=== PATIENT | female | born 1990 | race Caucasian/White ===

== ENCOUNTER 2019-03-21 17:10 | Outpatient (CLI) | payer BC, SELFPAY ==
[2019-03-21 17:34] VITALS: BMI 37.8
[2019-03-21 17:57] LABS: Hematocrit 36.8 % (37-47); Hemoglobin 12.3 g/dL (12.0-15.0); Mean Corp Hgb Conc 33.4 g/dL (32-36); Mean Corpuscular Hgb 29.6 pg (27.0-32.0); Mean Corpuscular Volume 88.5 fL (81-99); Mean Platelet Vol. 10.7 fl (6.2-12.0); Platelet Count 274 K/mm3 (150-450); RBC Distribution Width CV 13.7 % (11.6-14.6); RBC Distribution Width SD 44.1 fl (35.1-43.9); Red Blood Count 4.16 M/mm3 (4.2-5.4)
[2019-03-21 18:03] LABS: International Normalized Ratio 0.9; Prothrombin Time (Protime)PT. 11.9 SECONDS (11.7-14.9)
[2019-03-21 18:04] LABS: Partial Thromboplast Time 26.2 Seconds (24.1-36.2)
[2019-03-21 18:07] LABS: AST(SGOT) 12 U/L (15-37); Alanine Aminotransfer ALT/SGPT 12 U/L (13-56); Creatinine, Serum 0.65 mg/dL (0.55-1.02); EST Glomerular Filtration Rate 113 mL/min (>60); Est Glom Filt Rate - Afr Amer 137 mL/min (>60); Estimated Creatinine Clearance 114.91 ml/min; Uric Acid 5.9 mg/dL (2.6-6.0)
[2019-03-21 18:13] LABS: Creatinine, Urine (random) < 13.00 mg/dL (NO RANGE EST.); Protein, Urine (Random) < 6.0 mg/dL (<11.9)
--- NOTE | 2019-03-21 20:28 | OB.TRI.NOTE ---
History of Present Illness Date of Service: 03/21/19 Was patient seen by the physician?: Yes Reason For Visit: R/O PIH Date of Service: 03/21/19 Final KAITLIN: 04/30/19 Gestational age: 34 Weeks and 2 Days History of Present Illness: 28yo @ 34.2 wks c/o swelling and BP 140/90 at home. pt denies headache, visual changes, RUQ or epigastric pain. pt reports good FM, No vb or LOF. Allergies No Known Allergies Allergy (Verified 03/21/19 17:35) Laboratory Studies: Laboratory Tests 03/21/19 03/21/19 03/21/19 Range/Units 17:45 17:45 17:45 WBC (4.4-11.0) K/mm3 RBC (4.2-5.4) M/mm3 Hgb (12.0-15.0) g/dL Hct (37-47) % MCV (81-99) fL MCH (27.0-32.0) pg MCHC (32-36) g/dL RDW Std Deviation (35.1-43.9) fl RDW Coeff of Bulmaro (11.6-14.6) % Plt Count (150-450) K/mm3 MPV (6.2-12.0) fl PT 11.9 (11.7-14.9) SECONDS INR 0.9 APTT 26.2 (24.1-36.2) Seconds Creatinine 0.65 (0.55-1.02) mg/dL Estim Creat Clear Calc 114.91 ml/min Est GFR (MDRD) Af Amer 137 (>60) mL/min Est GFR (MDRD) Non-Af 113 (>60) mL/min Uric Acid 5.9 (2.6-6.0) mg/dL AST 12 L (15-37) U/L ALT 12 L (13-56) U/L U Random Total Protein < 6.0 (<11.9) mg/dL Urine Creatinine < 13.00 (NO RANGE EST.) mg/dL Protein/Creatinin Ratio TNP 03/21/19 Range/Units 17:45 WBC 9.0 (4.4-11.0) K/mm3 RBC 4.16 L (4.2-5.4) M/mm3 Hgb 12.3 (12.0-15.0) g/dL Hct 36.8 L (37-47) % MCV 88.5 (81-99) fL MCH 29.6 (27.0-32.0) pg MCHC 33.4 (32-36) g/dL RDW Std Deviation 44.1 H (35.1-43.9) fl RDW Coeff of Bulmaro 13.7 (11.6-14.6) % Plt Count 274 (150-450) K/mm3 MPV 10.7 (6.2-12.0) fl PT (11.7-14.9) SECONDS INR APTT (24.1-36.2) Seconds Creatinine (0.55-1.02) mg/dL Estim Creat Clear Calc ml/min Est GFR (MDRD) Af Amer (>60) mL/min Est GFR (MDRD) Non-Af (>60) mL/min Uric Acid (2.6-6.0) mg/dL AST (15-37) U/L ALT (13-56) U/L U Random Total Protein (<11.9) mg/dL Urine Creatinine (NO RANGE EST.) mg/dL Protein/Creatinin Ratio NST - FHR Rate Baby A Baseline: 125 Variability:: Moderate Accelerations:: 15 x 15 Decelerations:: None NST Reactive:: Yes FHR Category:: Category I Uterine Activity:: occasional Impression/Plan 28yo @ 34.2 wks, well being established, Not preeclamptic 1) Labs reviewed- pre e labs wnl 2) S/sx of PRE E reviewed 3) VS reviewed- BPs wnl 4) Dc home- has office visit 03/23/19
== END 2019-03-21 18:25 | disposition home or self-care (01) ==
LOC: WPOUT 17:17 → WP 17:18
PROVIDERS: Visit Provider Obstetrics & Gynecology
DX: O26.893 Other specified pregnancy related conditions, third trimester (principal); R03.0 Elevated blood-pressure reading, without diagnosis of hypertension; Z3A.34 34 weeks gestation of pregnancy
CPT/HCPCS: 36415; 59025; 59050; 82565; 82570; 84156; 84450; 84460; 84550; 85027; 85610; 85730; 99218; G0378

== ENCOUNTER 2019-03-23 10:20 | Outpatient (CLI) | payer BC, SELFPAY ==
[2019-03-23 10:28] VITALS: BMI 37.1
[2019-03-23 11:06] LABS: Protein, Urine (Random) < 6.0 mg/dL (<11.9)
[2019-03-23 11:13] LABS: Hematocrit 38.1 % (37-47); Hemoglobin 12.9 g/dL (12.0-15.0); Mean Corp Hgb Conc 33.9 g/dL (32-36); Mean Corpuscular Hgb 30.4 pg (27.0-32.0); Mean Corpuscular Volume 89.9 fL (81-99); Mean Platelet Vol. 10.7 fl (6.2-12.0); Platelet Count 281 K/mm3 (150-450); RBC Distribution Width CV 13.6 % (11.6-14.6); RBC Distribution Width SD 43.8 fl (35.1-43.9); Red Blood Count 4.24 M/mm3 (4.2-5.4); White Blood Count 9.8 K/mm3 (4.4-11.0)
[2019-03-23 11:21] LABS: International Normalized Ratio 0.9
[2019-03-23 11:22] LABS: Partial Thromboplast Time 26.3 Seconds (24.1-36.2)
[2019-03-23 11:25] LABS: AST(SGOT) 10 U/L (15-37); Alanine Aminotransfer ALT/SGPT 12 U/L (13-56); Creatinine, Serum 0.64 mg/dL (0.55-1.02); EST Glomerular Filtration Rate 117 mL/min (>60); Est Glom Filt Rate - Afr Amer 141 mL/min (>60); Estimated Creatinine Clearance 116.71 ml/min; Uric Acid 5.7 mg/dL (2.6-6.0)
[2019-03-23] MEDS: Betamethasone/Betamethasone 30 MG/5 ML Vial 12 MG IM (12:48)
--- NOTE | 2019-03-31 04:25 | OB.TRI.PN ---
Progress Notes Date of Service: 03/23/19 Progress Note: 34w4d who presented with elevated BP in office and [facility] and labs. Asymptomatic, no headaches, visual changes, or RUQ pain. O: BP elevated in mild range, one severe range. FHT: 130, moderate variability, accels TOCO: None A: Gestational Hypertension P: 1) Labs normal, urine P/C ratio normal 2) BP with one severe range. To return tomorrow for BP check in office and reviewed preeclampsia precautions. 3) Celestone dose today and repeat in 24 hrs. 4) notified of patient status and ok to D/C home at this time. Laboratory Studies: Laboratory Tests 03/23/19 03/23/19 03/23/19 Range/Units 11:00 11:00 11:00 WBC 9.8 (4.4-11.0) K/mm3 RBC 4.24 (4.2-5.4) M/mm3 Hgb 12.9 (12.0-15.0) g/dL Hct 38.1 (37-47) % MCV 89.9 (81-99) fL MCH 30.4 (27.0-32.0) pg MCHC 33.9 (32-36) g/dL RDW Std Deviation 43.8 (35.1-43.9) fl RDW Coeff of Bulmaro 13.6 (11.6-14.6) % Plt Count 281 (150-450) K/mm3 MPV 10.7 (6.2-12.0) fl PT 12.0 (11.7-14.9) SECONDS INR 0.9 APTT 26.3 (24.1-36.2) Seconds Creatinine 0.64 (0.55-1.02) mg/dL Estim Creat Clear Calc 116.71 ml/min Est GFR (MDRD) Af Amer 141 (>60) mL/min Est GFR (MDRD) Non-Af 117 (>60) mL/min Uric Acid 5.7 (2.6-6.0) mg/dL AST 10 L (15-37) U/L ALT 12 L (13-56) U/L U Random Total Protein (<11.9) mg/dL Urine Creatinine (NO RANGE EST.) mg/dL Protein/Creatinin Ratio 03/23/19 Range/Units 10:30 WBC (4.4-11.0) K/mm3 RBC (4.2-5.4) M/mm3 Hgb (12.0-15.0) g/dL Hct (37-47) % MCV (81-99) fL MCH (27.0-32.0) pg MCHC (32-36) g/dL RDW Std Deviation (35.1-43.9) fl RDW Coeff of Bulmaro (11.6-14.6) % Plt Count (150-450) K/mm3 MPV (6.2-12.0) fl PT (11.7-14.9) SECONDS INR APTT (24.1-36.2) Seconds Creatinine (0.55-1.02) mg/dL Estim Creat Clear Calc ml/min Est GFR (MDRD) Af Amer (>60) mL/min Est GFR (MDRD) Non-Af (>60) mL/min Uric Acid (2.6-6.0) mg/dL AST (15-37) U/L ALT (13-56) U/L U Random Total Protein < 6.0 (<11.9) mg/dL Urine Creatinine 15.60 (NO RANGE EST.) mg/dL Protein/Creatinin Ratio TNP
== END 2019-03-23 12:50 | disposition home or self-care (01) ==
LOC: WPOUT 10:25 → OBT 10:26
PROVIDERS: Referring Provider Advanced Practice Midwife; Visit Provider Advanced Practice Midwife
DX: O13.3 Gestational [pregnancy-induced] hypertension without significant proteinuria, third trimester (principal); Z3A.34 34 weeks gestation of pregnancy; O60.03 Preterm labor without delivery, third trimester
CPT/HCPCS: 36415; 59025; 59050; 82565; 82570; 84156; 84450; 84460; 84550; 85027; 85610; 85730; 96372; 99218; G0378; J0702

== ENCOUNTER 2019-03-24 11:10 | Outpatient (CLI) | payer BC, SELFPAY ==
[2019-03-23 10:28] VITALS: BMI 37.1
[2019-03-24 11:33] VITALS: BMI 37.3
[2019-03-24] MEDS: Betamethasone/Betamethasone 30 MG/5 ML Vial 12 MG IM (11:40)
--- NOTE | 2019-03-24 17:49 | OB.TRI.NOTE ---
History of Present Illness Date of Service: 03/24/19 Was patient seen by the physician?: No Reason For Visit: CELESTONE Date of Service: 03/24/19 Allergies No Known Allergies Allergy (Verified 03/24/19 11:33) Impression/Plan 29-year-old 2 para 034+ gestational weeks with gestational hypertension. Presents for second dose of betamethasone. Betamethasone given. Follow-up in the office as scheduled or as needed.
== END 2019-03-24 12:00 | disposition home or self-care (01) ==
LOC: WPOUT 11:19 → OBT 11:20
PROVIDERS: Referring Provider Obstetrics & Gynecology; Visit Provider Obstetrics & Gynecology
DX: O13.3 Gestational [pregnancy-induced] hypertension without significant proteinuria, third trimester (principal); Z3A.34 34 weeks gestation of pregnancy
CPT/HCPCS: 96372; 99218; G0378; J0702

== ENCOUNTER 2019-03-25 13:20 | Outpatient (CLI) | payer BC, SELFPAY ==
[2019-03-24 11:33] VITALS: BMI 37.3
[2019-03-25 13:43] VITALS: BMI 37.8
[2019-03-25 14:35] LABS: Hemoglobin 11.2 g/dL (12.0-15.0); Mean Corp Hgb Conc 32.9 g/dL (32-36); Mean Corpuscular Hgb 29.9 pg (27.0-32.0); Mean Corpuscular Volume 90.7 fL (81-99); Mean Platelet Vol. 10.8 fl (6.2-12.0); Platelet Count 300 K/mm3 (150-450); RBC Distribution Width CV 14.1 % (11.6-14.6); RBC Distribution Width SD 45.8 fl (35.1-43.9); Red Blood Count 3.75 M/mm3 (4.2-5.4); White Blood Count 13.5 K/mm3 (4.4-11.0)
[2019-03-25 14:44] LABS: Protein, Urine (Random) 67.4 mg/dL (<11.9); Protein:Creat Ratio 411 mg/g CRE (0-200)
[2019-03-25 14:44] LABS: International Normalized Ratio 0.9; Prothrombin Time (Protime)PT. 12.3 SECONDS (11.7-14.9)
[2019-03-25 14:45] LABS: Partial Thromboplast Time 23.3 Seconds (24.1-36.2)
[2019-03-25 14:47] LABS: AST(SGOT) 19 U/L (15-37); Alanine Aminotransfer ALT/SGPT 19 U/L (13-56); Creatinine, Serum 0.78 mg/dL (0.55-1.02); EST Glomerular Filtration Rate 93 mL/min (>60); Est Glom Filt Rate - Afr Amer 112 mL/min (>60); Uric Acid 6.3 mg/dL (2.6-6.0)
[2019-03-26 14:12] LABS: 24HR. Urine Creatinine 1.56 g/24 HR (0.70-1.90)
--- NOTE | 2019-04-01 17:44 | OB.TRI.NOTE ---
- Problem List (1) Gestational hypertension Status: Acute (2) 34 weeks gestation of Status: Acute (3) Elevated blood pressure reading Status: Acute History of Present Illness Date of Service: 03/24/19 Was patient seen by the physician?: No Reason For Visit: HIGH BLOOD PRESSURE Final KAITLIN: 04/30/19 Gestational age: 35 Weeks and 6 Days History of Present Illness: Checked her blood pressure at home and it was noted to be in the severe range. She notes a very mild and dull headache, and declines Tylenol for this headache as she states it is hardly there. Denies vision changes, right upper quadrant pain, epigastric pain, nausea, vomiting, malaise. Denies contractions, vaginal bleeding, loss of fluid. Good movement. Allergies No Known Allergies Allergy (Verified 03/25/19 13:44) Laboratory Studies: Laboratory Tests 03/25/19 03/25/19 03/25/19 Range/Units 14:20 14:15 14:15 WBC (4.4-11.0) K/mm3 RBC (4.2-5.4) M/mm3 Hgb (12.0-15.0) g/dL Hct (37-47) % MCV (81-99) fL MCH (27.0-32.0) pg MCHC (32-36) g/dL RDW Std Deviation (35.1-43.9) fl RDW Coeff of Bulmaro (11.6-14.6) % Plt Count (150-450) K/mm3 MPV (6.2-12.0) fl PT 12.3 (11.7-14.9) SECONDS INR 0.9 APTT 23.3 L (24.1-36.2) Seconds Creatinine 0.78 (0.55-1.02) mg/dL Estim Creat Clear Calc 94.90 ml/min Est GFR (MDRD) Af Amer 112 (>60) mL/min Est GFR (MDRD) Non-Af 93 (>60) mL/min Uric Acid 6.3 H (2.6-6.0) mg/dL AST 19 (15-37) U/L ALT 19 (13-56) U/L U Random Total Protein 67.4 H (<11.9) mg/dL Ur Collection Duration (24.0) HOURS Urine Total Volume L Urine Creatinine 164.00 (NO RANGE EST.) mg/dL Ur Creatinine 24 Hour (0.70-1.90) g/24 HR Protein/Creatinin Ratio 411 H (0-200) mg/g CRE 03/25/19 03/25/19 Range/Units 14:15 13:53 WBC 13.5 H (4.4-11.0) K/mm3 RBC 3.75 L (4.2-5.4) M/mm3 Hgb 11.2 L (12.0-15.0) g/dL Hct 34.0 L (37-47) % MCV 90.7 (81-99) fL MCH 29.9 (27.0-32.0) pg MCHC 32.9 (32-36) g/dL RDW Std Deviation 45.8 H (35.1-43.9) fl RDW Coeff of Bulmaro 14.1 (11.6-14.6) % Plt Count 300 (150-450) K/mm3 MPV 10.8 (6.2-12.0) fl PT (11.7-14.9) SECONDS INR APTT (24.1-36.2) Seconds Creatinine (0.55-1.02) mg/dL Estim Creat Clear Calc ml/min Est GFR (MDRD) Af Amer (>60) mL/min Est GFR (MDRD) Non-Af (>60) mL/min Uric Acid (2.6-6.0) mg/dL AST (15-37) U/L ALT (13-56) U/L U Random Total Protein (<11.9) mg/dL Ur Collection Duration 24.0 (24.0) HOURS Urine Total Volume 1.80 L Urine Creatinine 84.10 (NO RANGE EST.) mg/dL Ur Creatinine 24 Hour 1.56 (0.70-1.90) g/24 HR Protein/Creatinin Ratio (0-200) mg/g CRE NST - FHR Rate Baby A Baseline: 130 Variability:: Moderate Accelerations:: 15 x 15 Decelerations:: None NST Reactive:: Yes Uterine Activity:: Irritability Impression/Plan Pre-e labs were obtained and normal except elevated p/c ratio 24 hr urine protein ordered BP normal to mild range Pt declines Tylenol as she states she barely notices a [place] Discharged home with follow up in the office same week for BP check and symptom check Pt notify of symptoms and signs of severe pre-e and when to return gHTN with superimposed pre-e
== END 2019-03-25 15:30 | disposition home or self-care (01) ==
LOC: WPOUT 13:25 → WP 13:25
PROVIDERS: Obstetrics & Gynecology; Referring Provider Obstetrics & Gynecology; Visit Provider Obstetrics & Gynecology
DX: O13.3 Gestational [pregnancy-induced] hypertension without significant proteinuria, third trimester (principal); Z3A.35 35 weeks gestation of pregnancy
CPT/HCPCS: 36415; 59025; 59050; 81050; 82565; 82570; 84156; 84450; 84460; 84550; 85027; 85610; 85730; 99218; G0378

== ENCOUNTER → 2019-03-26 13:39 | Outpatient (CLI) | payer BC, SELFPAY ==
[2019-03-25 13:43] VITALS: BMI 37.8
== END ==
PROVIDERS: Referring Provider Obstetrics & Gynecology; Visit Provider Obstetrics & Gynecology
DX: Z00.00 Encounter for general adult medical examination without abnormal findings (principal)

== ENCOUNTER 2019-04-08 18:53 | Inpatient (IN) | payer BC, SELFPAY ==
[2019-04-08 20:14] VITALS: BMI 37.3
[2019-04-08] MEDS: Lactated Ringers 1,000 ML 50 ML IV (20:35)
[2019-04-08] MEDS: 0.9% Saline Lock 10 ML Syringe IV (20:45)
[2019-04-08 21:12] LABS: Absolute Lymphocyte Count 2.47 X10^3/uL (0.83-4.51); Absolute Neutrophil Count 7.5 X10^3/uL (2.0-7.7); Basophil# 0.03 X10^3/uL; Basophil% 0.3 % (0-1); Eosinophil# 0.05 X10^3/uL; Eosinophils% 0.5 % (0-5); Hemoglobin 11.7 g/dL (12.0-15.0); Lymphocyte # 2.47 X10^3/ul (4.0); Lymphocyte % 22.7 % (19-41); Mean Corp Hgb Conc 33.4 g/dL (32-36); Mean Corpuscular Hgb 30.2 pg (27.0-32.0); Mean Corpuscular Volume 90.4 fL (81-99); Mean Platelet Vol. 11.5 fl (6.2-12.0); Monocyte# 0.79 X10^3/uL; Monocyte% 7.3 % (0-10); NRBC Flagged by Analyzer 0 % (0-5); Neutrophil # 7.46 X10^3/uL (2.7-7.7); Neutrophil % 68.4 % (47-70); Platelet Count 276 K/mm3 (150-450); RBC Distribution Width CV 14.8 % (11.6-14.6); RBC Distribution Width SD 48.2 fl (35.1-43.9); Red Blood Count 3.87 M/mm3 (4.2-5.4); White Blood Count 10.9 K/mm3 (4.4-11.0)
[2019-04-08] MEDS: 0.9% Normal Saline Single 100 ML IV.SOLN. IY (21:13)
--- NOTE | 2019-04-08 21:23 | PCM.HP.OB ---
History Date of Admission: 04/08/19 Final KAITLIN: 04/30/19 Final KAITLIN Source: LMP Gestational age: 36 Weeks and 6 Days History of this : This is a 29 year-old, @ 36.6 wks preeclampsia without severe features here for induction of labor. Patient has previously received Celestone x2 doses. Today patient denies any right upper quadrant, epigastric, headaches or visual changes. Allergies No Known Allergies Allergy (Verified 04/08/19 20:14) Home Medications: Home Medications Levothyroxine [Synthroid] 75 mcg PO DAILY 03/21/19 Pnv 102/Iron/Folate 1/Dss/Dha [Vitafol Fe+ Docusate Combo Pck] 1 tab PO DAILY 03/21/19 Smoking Status: Former smoker Alcohol: None Number of Fetus(es): 1 NST - FHR Rate Baby A Baseline: 125 Variability:: Moderate Accelerations:: 15 x 15 Decelerations:: None NST Reactive:: Yes FHR Category:: Category I Uterine Activity:: irregular History Past Pregnancies: Past Pregnancies Delivery Date Name GA/ Weeks Outcome Route Wt Sex Labor Length Anesthesia Delivery Location Provider FOB Labs: GBS positive. Expected Infant Delivery Method: Spontaneous Vaginal Review of Systems Eyes: Denies: Blurred vision, Vision Change HEENT: Denies: Head Aches Cardiovascular: Denies: Chest Pain Gastrointestinal: Denies: Abdominal Pain Physical Exam General: Alert, Oriented x3 Abdomen: Soft, Non Tender, Gravid, - - NO RUQ or epigastric pain on palpation Neurological: Cranial nerves II-XII grossly intact Assessment/Plan All Active Problems Gestational hypertension (Acute) 34 weeks gestation of (Acute) Elevated blood pressure reading (Acute) This is a 29 year-old, @ 36.6 wks here for IOL for Preeclampsia - w/o severe features 1) admit to L&D 2) monitor vs- Initiate HTN protocol and magnesium if Severe range 3) DOVE/CYTOTEC 4) GBS prophylaxis when dove out and pitocin started 5) PRE E labs ordered 6) Anticipate
[2019-04-08] MEDS: miSOPROStol 25 MCG TABLET VAGINAL (21:26)
--- NOTE | 2019-04-08 21:31 | PCM.PN.BLA ---
Progress Note transcervical dove placed without difficulty. Pt tolerated well. Will start with Cytotec and when dove out will start pitocin and PCN for GBS prophylaxis.
[2019-04-08 21:38] LABS: AST(SGOT) 13 U/L (15-37); Alanine Aminotransfer ALT/SGPT 12 U/L (13-56); Creatinine, Serum 0.72 mg/dL (0.55-1.02); EST Glomerular Filtration Rate 101 mL/min (>60); Est Glom Filt Rate - Afr Amer 123 mL/min (>60); Estimated Creatinine Clearance 102.81 ml/min; Uric Acid 6.6 mg/dL (2.6-6.0)
[2019-04-08 21:52] LABS: Protein, Urine (Random) 69.5 mg/dL (<11.9); Protein:Creat Ratio 355 mg/g CRE (0-200)
[2019-04-08 22:09] LABS: International Normalized Ratio 0.9; Partial Thromboplast Time 26.7 Seconds (24.1-36.2); Prothrombin Time (Protime)PT. 12.3 SECONDS (11.7-14.9)
[2019-04-09] VITALS (7 sets, daily range): BP systolic 142–152; BP diastolic 77–101; PULSE 87–101; RESP 18–19; TEMP 36.4–36.9; O2SAT 95–98
[2019-04-09] MEDS: Oxytocin 30 units/NS 500 ml 30 UNITS/500 ML IV.SOLN IV (01:29)
[2019-04-09] MEDS: Lactated Ringers 500 ML 999 ML IV ×3 (04:53→14:18)
[2019-04-09] MEDS: fentaNYL-bupivacaine (epidural) 100 ML BAG EPIDURAL ×3 (06:52→16:56)
[2019-04-09] MEDS: Ondansetron 4 MG/2 ML Vial IV (07:45)
--- NOTE | 2019-04-09 08:59 | PCM.PN.OB ---
Subjective: Resting in bed comfortable with epidural. FOB at bedside. Objective: FHR 140, minimal variability, accels, Category 2 TOCO: every 2 minutes mild to strong Cervix: 3cm/60%/-2 AROM for small amount of clear fluid, IUPC placed - Physical Exam Vitals/I&O's: Weight: 224 lb Body Mass Index (BMI) 37.3 Intake and Output for Last 24 Hours 04/07/19 04/08/19 04/09/19 23:59 23:59 23:59 Intake Total 8.33 / 8.33 865.56 / 865.56 Balance 8.33 / 8.33 865.56 / 865.56 Laboratory Results 04/08/19 20:35: WBC 10.9, RBC 3.87 L, Hgb 11.7 L, Hct 35.0 L, MCV 90.4, MCH 30.2, MCHC 33.4, RDW Std Deviation 48.2 H, RDW Coeff of Bulmaro 14.8 H, Plt Count 276, MPV 11.5, Immature Gran % (Auto) 0.800, Neut % (Auto) 68.4, Lymph % (Auto) 22.7, [place] % (Auto) 7.3, Eos % (Auto) 0.5, Baso % (Auto) 0.3, Absolute Neuts (auto) 7.5, Absolute Lymphs (auto) 2.47, Nucleated RBC % 0 04/08/19 20:35: Blood Type A POSITIVE, Antibody Screen NEGATIVE 04/08/19 20:35: PT 12.3, INR 0.9, APTT 26.7 04/08/19 20:35: Creatinine 0.72, Estim Creat Clear Calc 102.81, Est GFR (MDRD) Af Amer 123, Est GFR (MDRD) Non-Af 101, Uric Acid 6.6 H, AST 13 L, ALT 12 L 04/08/19 21:10: U Random Total Protein 69.5 H, Urine Creatinine 196.00, Protein/Creatinin Ratio 355 H Current Medications Acetaminophen (Tylenol) 325 - 650 mg PO Q4H PRN PRN PRN Reason: Pain Score 1-3/10 Al Hydroxide/Mg Hydroxide (Mylanta Ii) 15 - 30 ml PO Q4H PRN PRN PRN Reason: INDIGESTION Citric Acid/Sodium Citrate (Bicitra) 30 ml PO X1 PRN PRN Reason: Section Ephedrine Sulfate () 10 mg IV Q10M PRN PRN Reason: hypotension Ephedrine Sulfate () 10 mg IM Q30M PRN PRN Reason: hypotension Fentanyl Citrate (Sublimaze (100mcg Ampule)) 25 - 50 mcg IV Q2H PRN PRN PRN Reason: Pain Score 4-10/10 Fentanyl/Bupivacaine/Sodium Chlor () 0 ml EPIDURAL UD [facility]; Protocol Last Admin: 04/09/19 06:52 Dose: 100 ml Documented by: Lactated Ringer's () 500 mls @ 999 mls/hr IV .Q31M PRN PRN Reason: Epidural Last Infusion: 04/09/19 05:25 Dose: Infused Documented by: Lactated Ringer's () 500 mls @ 999 mls/hr IV .Q31M PRN PRN Reason: Corrective Measures Lactated Ringer's () 1,000 mls @ 50 mls/hr IV .Q20H [facility] Last Infusion: 04/09/19 05:25 Dose: 200 mls/hr Documented by: Penicillin G Potassium/Dextrose (Penicillin G Potassium) 3 mu in 50 mls @ 100 mls/hr IV Q4H [facility] Last Infusion: 04/09/19 06:50 Dose: Infused Documented by: Oxytocin/Sodium Chloride () 30 units in 500 mls @ 2 mls/hr IV .Q250H [facility] Last Infusion: 04/09/19 07:50 Dose: 10 mls/hr Documented by: Naloxone HCl 4 mg/ Dextrose 504 mls @ 0 mls/hr IV .Q0M PRN; Protocol PRN Reason: To maintain Resp. rate >10 Nalbuphine HCl (Nubain) 5 mg IV Q3H PRN PRN PRN Reason: ITCHING Naloxone HCl (Narcan) 0.02 mg IV Q1M PRN PRN Reason: RR< 10 AND PT UNRESPONSIVE Ondansetron HCl (Zofran) 4 mg IV Q4H PRN PRN PRN Reason: NAUSEA Last Admin: 04/09/19 07:45 Dose: 4 mg Documented by: Prochlorperazine Edisylate (Compazine Iv) 10 mg IV Q6H PRN PRN PRN Reason: NAUSEA Sodium Chloride () 10 - 40 ml IV X1 PRN PRN Reason: SALINE FLUSH Last Admin: 04/08/19 20:45 Dose: 10 ml Documented by: Medical Necessity - Tobacco Use Smoking Status: Former smoker Assessment/Plan All Active Problems Gestational hypertension (Acute) 34 weeks gestation of (Acute) Elevated blood pressure reading (Acute) A:Induction of labor Category 2 FHT P: 1) Unable to trace contractions, IUPC placed. Pitocin at 10 mu's 2) Positional changes
[2019-04-09] MEDS: Lactated Ringers 1,000 ML 200 ML IV ×2 (10:45→18:16)
--- NOTE | 2019-04-09 12:29 | PCM.PN.OB ---
Subjective: Resting on left side, comfortable with epidural. at bedside. Objective: FHT 130, minimal variability, accels, Category 2 TOCO: every 2-3 minutes 190-250 mvus, Pitocin at 8 mus cervix per nursing 4cm/80%/-2 - Physical Exam Vitals/I&O's: Weight: 224 lb Body Mass Index (BMI) 37.3 Intake and Output for Last 24 Hours 04/07/19 04/08/19 04/09/19 23:59 23:59 23:59 Intake Total 8.33 / 8.33 225. / 2251. Balance 8.33 / 8.33 225. / Laboratory Results 04/08/19 20:35: WBC 10.9, RBC 3.87 L, Hgb 11.7 L, Hct 35.0 L, MCV 90.4, MCH 30.2, MCHC 33.4, RDW Std Deviation 48.2 H, RDW Coeff of Bulmaro 14.8 H, Plt Count 276, MPV 11.5, Immature Gran % (Auto) 0.800, Neut % (Auto) 68.4, Lymph % (Auto) 22.7, [place] % (Auto) 7.3, Eos % (Auto) 0.5, Baso % (Auto) 0.3, Absolute Neuts (auto) 7.5, Absolute Lymphs (auto) 2.47, Nucleated RBC % 0 04/08/19 20:35: Blood Type A POSITIVE, Antibody Screen NEGATIVE 04/08/19 20:35: PT 12.3, INR 0.9, APTT 26.7 04/08/19 20:35: Creatinine 0.72, Estim Creat Clear Calc 102.81, Est GFR (MDRD) Af Amer 123, Est GFR (MDRD) Non-Af 101, Uric Acid 6.6 H, AST 13 L, ALT 12 L 04/08/19 21:10: U Random Total Protein 69.5 H, Urine Creatinine 196.00, Protein/Creatinin Ratio 355 H Current Medications Acetaminophen (Tylenol) 325 - 650 mg PO Q4H PRN PRN PRN Reason: Pain Score 1-3/10 Al Hydroxide/Mg Hydroxide (Mylanta Ii) 15 - 30 ml PO Q4H PRN PRN PRN Reason: INDIGESTION Citric Acid/Sodium Citrate (Bicitra) 30 ml PO X1 PRN PRN Reason: Section Ephedrine Sulfate () 10 mg IV Q10M PRN PRN Reason: hypotension Ephedrine Sulfate () 10 mg IM Q30M PRN PRN Reason: hypotension Fentanyl Citrate (Sublimaze (100mcg Ampule)) 25 - 50 mcg IV Q2H PRN PRN PRN Reason: Pain Score 4-10/10 Fentanyl/Bupivacaine/Sodium Chlor () 0 ml EPIDURAL UD [facility]; Protocol Last Admin: 04/09/19 11:09 Dose: 100 ml Documented by: Lactated Ringer's () 500 mls @ 999 mls/hr IV .Q31M PRN PRN Reason: Epidural Last Infusion: 04/09/19 05:25 Dose: Infused Documented by: Lactated Ringer's () 500 mls @ 999 mls/hr IV .Q31M PRN PRN Reason: Corrective Measures Last Infusion: 04/09/19 09:47 Dose: Infused Documented by: Lactated Ringer's () 1,000 mls @ 50 mls/hr IV .Q20H [facility] Last Admin: 04/09/19 10:45 Dose: 200 mls/hr Documented by: Penicillin G Potassium/Dextrose (Penicillin G Potassium) 3 mu in 50 mls @ 100 mls/hr IV Q4H [facility] Last Infusion: 04/09/19 10:30 Dose: Infused Documented by: Oxytocin/Sodium Chloride () 30 units in 500 mls @ 2 mls/hr IV .Q250H [facility] Last Infusion: 04/09/19 09:22 Dose: 8 mls/hr Documented by: Naloxone HCl 4 mg/ Dextrose 504 mls @ 0 mls/hr IV .Q0M PRN; Protocol PRN Reason: To maintain Resp. rate >10 Nalbuphine HCl (Nubain) 5 mg IV Q3H PRN PRN PRN Reason: ITCHING Naloxone HCl (Narcan) 0.02 mg IV Q1M PRN PRN Reason: RR< 10 AND PT UNRESPONSIVE Ondansetron HCl (Zofran) 4 mg IV Q4H PRN PRN PRN Reason: NAUSEA Last Admin: 04/09/19 07:45 Dose: 4 mg Documented by: Prochlorperazine Edisylate (Compazine Iv) 10 mg IV Q6H PRN PRN PRN Reason: NAUSEA Sodium Chloride () 10 - 40 ml IV X1 PRN PRN Reason: SALINE FLUSH Last Admin: 04/08/19 20:45 Dose: 10 ml Documented by: Medical Necessity - Tobacco Use Smoking Status: Former smoker Assessment/Plan All Active Problems Gestational hypertension (Acute) 34 weeks gestation of (Acute) Elevated blood pressure reading (Acute) A:Induction of labor Category 2 FHT P: 1) Positional changes, comfortable with epidural 2) IUPC and FSE in place 3) Continue with pitocin for active management 4) updated on patient status
--- NOTE | 2019-04-09 17:22 | PCM.PN.OB ---
Subjective: Resting on left side, comfortable with epidural. Family at bedside Objective: FHR 135, minimal variability, no accels, Category 2 TOCO: Every 2 minutes, strong, Pitocin at 2 mu's Cervix 10/100%/+1 - Physical Exam Vitals/I&O's: Weight: 224 lb Body Mass Index (BMI) 37.3 Intake and Output for Last 24 Hours 04/07/19 04/08/19 04/09/19 23:59 23:59 23:59 Intake Total 8.33 / 8.33 3455.20 / 3455.20 Balance 8.33 / 8.33 3455.20 / 3455.20 Laboratory Results 04/08/19 20:35: WBC 10.9, RBC 3.87 L, Hgb 11.7 L, Hct 35.0 L, MCV 90.4, MCH 30.2, MCHC 33.4, RDW Std Deviation 48.2 H, RDW Coeff of Bulmaro 14.8 H, Plt Count 276, MPV 11.5, Immature Gran % (Auto) 0.800, Neut % (Auto) 68.4, Lymph % (Auto) 22.7, [place] % (Auto) 7.3, Eos % (Auto) 0.5, Baso % (Auto) 0.3, Absolute Neuts (auto) 7.5, Absolute Lymphs (auto) 2.47, Nucleated RBC % 0 04/08/19 20:35: Blood Type A POSITIVE, Antibody Screen NEGATIVE 04/08/19 20:35: PT 12.3, INR 0.9, APTT 26.7 04/08/19 20:35: Creatinine 0.72, Estim Creat Clear Calc 102.81, Est GFR (MDRD) Af Amer 123, Est GFR (MDRD) Non-Af 101, Uric Acid 6.6 H, AST 13 L, ALT 12 L 04/08/19 21:10: U Random Total Protein 69.5 H, Urine Creatinine 196.00, Protein/Creatinin Ratio 355 H Current Medications Acetaminophen (Tylenol) 325 - 650 mg PO Q4H PRN PRN PRN Reason: Pain Score 1-3/10 Al Hydroxide/Mg Hydroxide (Mylanta Ii) 15 - 30 ml PO Q4H PRN PRN PRN Reason: INDIGESTION Citric Acid/Sodium Citrate (Bicitra) 30 ml PO X1 PRN PRN Reason: Section Ephedrine Sulfate () 10 mg IV Q10M PRN PRN Reason: hypotension Ephedrine Sulfate () 10 mg IM Q30M PRN PRN Reason: hypotension Fentanyl Citrate (Sublimaze (100mcg Ampule)) 25 - 50 mcg IV Q2H PRN PRN PRN Reason: Pain Score 4-10/10 Fentanyl/Bupivacaine/Sodium Chlor () 0 ml EPIDURAL UD [facility]; Protocol Last Admin: 04/09/19 16:56 Dose: 100 ml Documented by: Lactated Ringer's () 500 mls @ 999 mls/hr IV .Q31M PRN PRN Reason: Epidural Last Infusion: 04/09/19 05:25 Dose: Infused Documented by: Lactated Ringer's () 500 mls @ 999 mls/hr IV .Q31M PRN PRN Reason: Corrective Measures Last Infusion: 04/09/19 15:30 Dose: Infused Documented by: Lactated Ringer's () 1,000 mls @ 50 mls/hr IV .Q20H [facility] Last Infusion: 04/09/19 15:30 Dose: 200 mls/hr Documented by: Penicillin G Potassium/Dextrose (Penicillin G Potassium) 3 mu in 50 mls @ 100 mls/hr IV Q4H [facility] Last Infusion: 04/09/19 14:00 Dose: Infused Documented by: Oxytocin/Sodium Chloride () 30 units in 500 mls @ 2 mls/hr IV .Q250H [facility] Last Infusion: 04/09/19 15:52 Dose: 2 mls/hr Documented by: Naloxone HCl 4 mg/ Dextrose 504 mls @ 0 mls/hr IV .Q0M PRN; Protocol PRN Reason: To maintain Resp. rate >10 Nalbuphine HCl (Nubain) 5 mg IV Q3H PRN PRN PRN Reason: ITCHING Naloxone HCl (Narcan) 0.02 mg IV Q1M PRN PRN Reason: RR< 10 AND PT UNRESPONSIVE Ondansetron HCl (Zofran) 4 mg IV Q4H PRN PRN PRN Reason: NAUSEA Last Admin: 04/09/19 07:45 Dose: 4 mg Documented by: Prochlorperazine Edisylate (Compazine Iv) 10 mg IV Q6H PRN PRN PRN Reason: NAUSEA Sodium Chloride () 10 - 40 ml IV X1 PRN PRN Reason: SALINE FLUSH Last Admin: 04/08/19 20:45 Dose: 10 ml Documented by: Medical Necessity - Tobacco Use Smoking Status: Former smoker Assessment/Plan All Active Problems Gestational hypertension (Acute) 34 weeks gestation of (Acute) Elevated blood pressure reading (Acute) A:Active Labor, progressing Category 2 FHT P: 1) notified of patient with minimal variability and no accels. Cervical exam complete and getting ready to start pushing effort 2) temp 100.1, removing blankets as patient had very thick blanket in bed. No maternal or tachycardia and does not feel warm to the touch.
[2019-04-09] MEDS: Oxytocin 30 units/NS 500 ml 30 UNITS/500 ML IV.SOLN 334 UNITS IV (20:07)
--- NOTE | 2019-04-09 21:19 | PCM.OPRPT ---
Problem List (1) Vaginal delivery Status: Acute (2) Second degree perineal laceration Status: Acute Vaginal Delivery Maternal Presentation: Medically Indicated Induction - Preeclampsia Method of Induction: Pitocin Amniotic Membrane Rupture Type: Artificial Amniotic Fluid Description: Clear Final KAITLIN: 04/30/19 Final KAITLIN Source: US <20 weeks Gestational age: 37 Weeks and 0 Days Date of Procedure: 04/09/19 Pre-Operative Diagnosis: Preeclampsia Post-Operative Diagnosis: Surgery/ Procedure Performed: Spontaneous Vaginal Delivery Type of Anesthesia: Epidural, Local with 1% lidocaine Description of Procedure: of viable female over 2nd degree perineal laceration. APGARS 8, 9. Head delivered with body forthcoming. Placed on maternal abdomen, mouth and nares suctioned for secretions, strong cry. Pitocin started for active 3rd stage management. Cord clamped and cut after pulsations ceased. Placenta delivered intact via syeda, 3 vessel cord. Perineum inspected and revealed 2nd degree perineal laceration. Repaired under epidural and lidocaine with 3.0 vicryl. Fundus firm and hemostasis achieved. EBL 400ml. Vaginal sweep completed. Sponge and instrument count correct. Mom and baby stable. Planning to breastfeed. notified of delivery. Presentation: Vertex Placental Delivery Description: Spontaneous Placenta Disposition: [facility] Cord Vessel Description: 3 Vessels Cord Entanglement: Around neck x 1, loose Estimated Blood Loss: 400 ml Infant A gender: Female (1 minute): 8 (5 minute): 9 Episiotomy Description: None Laceration: Perineal Extension/lac, 2nd degree Medications given after delivery: IV Pitocin Complications: None
[2019-04-09] MEDS: Ibuprofen 600 MG Tablet PO (21:57)
[2019-04-09] MEDS: Magnesium Sulfate 4gm/100mL 4 GM/100 ML IV.SOLN. IV (22:42)
[2019-04-09] MEDS: Lactated Ringers 1,000 ML 15 ML IV (22:42)
[2019-04-09] MEDS: Labetalol 100 MG Tablet PO (23:55)
[2019-04-10] VITALS (17 sets, daily range): BP systolic 119–156; BP diastolic 57–94; PULSE 84–95; RESP 16–18; TEMP 35.8–37.1; O2SAT 95–98
--- NOTE | 2019-04-10 05:31 | NURSING ---
see magnesium flowsheet for pt VS
[2019-04-10 05:59] LABS: Hematocrit 30.9 % (37-47); Hemoglobin 10.6 g/dL (12.0-15.0); Mean Corp Hgb Conc 34.3 g/dL (32-36); Mean Corpuscular Hgb 31.1 pg (27.0-32.0); Mean Corpuscular Volume 90.6 fL (81-99); Mean Platelet Vol. 11.3 fl (6.2-12.0); Platelet Count 209 K/mm3 (150-450); Red Blood Count 3.41 M/mm3 (4.2-5.4); White Blood Count 16.7 K/mm3 (4.4-11.0)
--- NOTE | 2019-04-10 08:58 | PN.OBGYN_ITS ---
Patient Problems: Active and Suspected Problems Vaginal delivery (Acute) Second degree perineal laceration (Acute) Subjective: Some cramping and perineal pain. Otherwise patient denies epigastric pain, headache or visual changes. - Physical Exam Vitals/I&O's: Vital Signs Temp Pulse Resp BP Pulse Ox 98.0 F 91 16 134/74 H 97 04/10/19 07:45 04/10/19 07:45 04/10/19 07:45 04/10/19 07:45 04/10/19 07:45 Oxygen Delivery Method Room Air Weight: 101.605 kg Body Mass Index (BMI) 37.3 Intake and Output for Last 24 Hours 04/08/19 04/09/19 04/10/19 23:59 23:59 23:59 Intake Total 8.33 / 8.33 4994.60 / 5005.43 823.33 / 823.33 Output Total 450 / 450 1375 / 1375 Balance 8.33 / 8.33 4544.60 / 4555.43 -551.67 / -551.67 General: Alert, Cooperative, No apparent distress Abdomen: Soft, Non-Distended, - - Fundus firm Extremities: Edema - 2+ Neurological: Cranial nerves II-XII grossly intact, Deep Tendon Reflexes 2+/4 and Symmetrical Laboratory Results 04/10/19 05:50: WBC 16.7 H, RBC 3.41 L, Hgb 10.6 L, Hct 30.9 L, MCV 90.6, MCH 31.1, MCHC 34.3, RDW Std Deviation 49.0 H, RDW Coeff of Bulmaro 15.0 H, Plt Count 209, MPV 11.3 Current Medications Acetaminophen (Tylenol) 1,000 mg PO Q8H PRN PRN PRN Reason: Pain Score 1-3/10 Bisacodyl (Dulcolax) 10 mg RECTAL UD PRN PRN Reason: If no BM Calcium Gluconate () 1 gm IV X1 PRN PRN Reason: MAGNESIUM TOXICITY Dibucaine (Dibucaine) 1 applic TOPICAL TID PRN PRN; Protocol PRN Reason: Discomfort Hydrocortisone (Hytone) 1 applic TOPICAL TID PRN PRN; Protocol PRN Reason: Discomfort Lactated Ringer's () 1,000 mls @ 15 mls/hr IV .Q48H [facility] Last Admin: 04/09/19 22:42 Dose: 15 mls/hr Documented by: Ibuprofen (Motrin) 600 mg PO Q6H PRN PRN PRN Reason: Pain Score 1-3/10 Last Admin: 04/09/19 21:57 Dose: 600 mg Documented by: Labetalol HCl (Trandate) 100 mg PO BID [facility] Last Admin: 04/09/19 23:55 Dose: 100 mg Documented by: Labetalol HCl (Trandate) 20 mg IV Q10M PRN PRN PRN Reason: ELEVATED BP Methylergonovine Maleate (Methergine) 0.2 mg IM X1 PRN PRN Reason: Excess bleeding/uterine atony Midazolam HCl (Versed) 2 mg IV Q5M PRN PRN Reason: SEIZURE Ondansetron HCl (Zofran) 4 mg IV Q4H PRN PRN PRN Reason: Nausea Senna/Docusate Sodium (Senokot-S, Kim-Colace) 1 - 2 tablet PO DAILY PRN PRN PRN Reason: Constipation Simethicone (Mylicon) 80 mg PO [facility]S PRN PRN Reason: Indigestion/Stomach pain Sodium Chloride () 5 - 15 ml IV UD PRN PRN Reason: SALINE FLUSH Medical Necessity - Tobacco Use Smoking Status: Former smoker Assessment/Plan All Active Problems Gestational hypertension (Acute) 34 weeks gestation of (Acute) Elevated blood pressure reading (Acute) Vaginal delivery (Acute) Second degree perineal laceration (Acute) day #1 status post vaginal delivery. Had 1 dose of IV labetalol. Now stable on p.o. labetalol. Currently has preeclampsia without severe symptoms. Okay to DC magnesium as has been greater than 12 hours from delivery. Will monitor patient's blood pressures. Infant is doing well.
[2019-04-10] MEDS: Labetalol 100 MG Tablet PO ×2 (10:02→22:37)
[2019-04-10] MEDS: Ibuprofen 600 MG Tablet PO ×2 (12:31→23:09)
[2019-04-10] MEDS: Senna/Docusate Sodium 1 Tablet PO (12:31)
[2019-04-11 02:31] VITALS: BP 127/74; PULSE 82; RESP 16; TEMP 36.9
--- NOTE | 2019-04-11 08:26 | PN.OBGYN_ITS ---
Patient Problems: Active and Suspected Problems Vaginal delivery (Acute) Second degree perineal laceration (Acute) Subjective: pain well controlled, average lochia. Denies [place], epigastric pain or visual changes. - Physical Exam Vitals/I&O's: Vital Signs Temp Pulse Resp BP Pulse Ox 98.4 F 82 16 127/74 H 97 04/11/19 02:31 04/11/19 02:31 04/11/19 02:31 04/11/19 02:31 04/10/19 07:45 Oxygen Delivery Method Room Air Weight: 101.605 kg Body Mass Index (BMI) 37.3 Intake and Output for Last 24 Hours 04/09/19 04/10/19 04/11/19 23:59 23:59 23:59 Intake Total 4994.60 / 5005.43 1029.50 / 1029.50 Output Total 450 / 450 1825 / 1825 Balance 4544.60 / 4555.43 -795.50 / -795.50 General: Alert, Cooperative, No apparent distress Extremities: Edema - 1+, - - 2+ DTRS, no clonus Current Medications Acetaminophen (Tylenol) 1,000 mg PO Q8H PRN PRN PRN Reason: Pain Score 1-3/10 Bisacodyl (Dulcolax) 10 mg RECTAL UD PRN PRN Reason: If no BM Calcium Gluconate () 1 gm IV X1 PRN PRN Reason: MAGNESIUM TOXICITY Dibucaine (Dibucaine) 1 applic TOPICAL TID PRN PRN; Protocol PRN Reason: Discomfort Hydrocortisone (Hytone) 1 applic TOPICAL TID PRN PRN; Protocol PRN Reason: Discomfort Lactated Ringer's () 1,000 mls @ 15 mls/hr IV .Q48H [facility] Last Infusion: 04/10/19 08:50 Dose: Infused Documented by: Ibuprofen (Motrin) 600 mg PO Q6H PRN PRN PRN Reason: Pain Score 1-3/10 Last Admin: 04/10/19 23:09 Dose: 600 mg Documented by: Labetalol HCl (Trandate) 100 mg PO BID [facility] Last Admin: 04/10/19 22:37 Dose: 100 mg Documented by: Labetalol HCl (Trandate) 20 mg IV Q10M PRN PRN PRN Reason: ELEVATED BP Methylergonovine Maleate (Methergine) 0.2 mg IM X1 PRN PRN Reason: Excess bleeding/uterine atony Midazolam HCl (Versed) 2 mg IV Q5M PRN PRN Reason: SEIZURE Ondansetron HCl (Zofran) 4 mg IV Q4H PRN PRN PRN Reason: Nausea Senna/Docusate Sodium (Senokot-S, Kim-Colace) 1 - 2 tablet PO DAILY PRN PRN PRN Reason: Constipation Last Admin: 04/10/19 12:31 Dose: 2 tablet Documented by: Simethicone (Mylicon) 80 mg PO PCHS PRN PRN Reason: Indigestion/Stomach pain Sodium Chloride () 5 - 15 ml IV UD PRN PRN Reason: SALINE FLUSH Medical Necessity - Tobacco Use Smoking Status: Former smoker Assessment/Plan All Active Problems Gestational hypertension (Acute) 34 weeks gestation of (Acute) Elevated blood pressure reading (Acute) Vaginal delivery (Acute) Second degree perineal laceration (Acute) PPD#2 doing well BP stable, d/c home on labetalol, will decreased to 50 mg is doing well f/u in office next week for BP check or prn
--- NOTE | 2019-04-11 08:30 | DCINST_ITS ---
Discharge Diet: No Restrictions Discharge Activity: Return to Normal Activity, May not drive while taking narcotic pain medications., May Shower May resume sexual activity in: 4-6 weeks Additional Activity Instructions:: Nothing in the vagina for 4-6 weeks. You may return to work/school in 6 weeks. Call your doctor if your incision/area has: Continuous Slow Oozing, Sudden Increased Bleeding, Increased Pain/ Swelling, Increased Redness, Foul Smelling Discharge Additional Instructions: If you experience any of the following, contact your healthcare provider. * Bleeding that soaks a pad every hour for 2 hours * Fever 100.4 or higher * Unrelieved incision or abdominal pain * Swelling, redness, discharge or bleeding from your incision or episiotomy site * Your incision begins to separate * Problems urinating (including inability to urinate or burning while urinating). * Visual changes * Severe headache * Flu-like symptoms * Pain or redness in one of both of your breasts * Pain, warmth, tenderness or swelling in your legs, especially the calf area * Frequent nausea and vomiting * Symptoms of depression or anxiety If you experience any of the following, call 911 or go to the nearest Emergency Room. * Chest pain * Problems breathing * Seizure activity * Partial or complete paralysis of a body part, slurred speech, weakness or drooping of the face, or a sudden inability to walk or hold your balance Allergies/Adverse Reactions: Allergies No Known Allergies Allergy (Verified 04/08/19 20:14) Medications to take at Discharge Levothyroxine [Synthroid] 75 mcg PO DAILY 03/21/19 Pnv 102/Iron/Folate 1/Dss/Dha [Vitafol Fe+ Docusate Combo Pck] 1 tab PO DAILY 03/21/19 Ibuprofen [Motrin] 600 mg PO Q6H PRN #60 tab 04/11/19 Labetalol [Trandate (Beta Deven)] 50 mg PO BID #30 tab 04/11/19 The following prescriptions were given: Ibuprofen [Motrin] 600 mg PO Q6H PRN #60 tab PRN Reason: Pain Transmission Status: Pending to [id number] Labetalol [Trandate (Beta Deven)] 50 mg PO BID #30 tab Transmission Status: Pending to [id number] Please Follow Up With: Mary Saucedo MD - [phone] When: Call to make an appointment in our office next week and in 6 weeks or as needed Primary Care Physician: Care Physician,No Primary [Primary Care Provider] - Test Results: Test results from this visit will be discussed in further detail at your follow- up appointment, if applicable.
[2019-04-11 10:00] VITALS: BP 139/89; PULSE 86; RESP 12; TEMP 36.7
[2019-04-11] MEDS: Labetalol 100 MG Tablet PO (10:33)
--- NOTE | 2019-04-11 15:18 | NURSING ---
1335Pt states she wants to go home and feels able to care for herself and her baby. Discharged to home via wheelchair cith in car seat in her lap.
== END 2019-04-11 13:35 | disposition home or self-care (01) | DRG 807 ==
PROVIDERS: Advanced Practice Midwife; Admitting Provider Obstetrics & Gynecology; Visit Provider Obstetrics & Gynecology
DX: O14.04 Mild to moderate pre-eclampsia, complicating childbirth (principal); Z37.0 Single live birth; O60.14X0 Preterm labor third trimester with preterm delivery third trimester, not applicable or unspecified; O70.1 Second degree perineal laceration during delivery; Z3A.36 36 weeks gestation of pregnancy; Z87.891 Personal history of nicotine dependence; Z79.890 Hormone replacement therapy
CPT/HCPCS: 59025; 59050; 82565; 82570; 84156; 84450; 84460; 84550; 85025; 85027; 85610; 85730; 86850; 86900; 86901; 99218; J7040; J7120; A4216; G0378; J2405; J3475

== ENCOUNTER → 2023-07-09 | Outpatient (CLI) | payer BC, SELFPAY ==
[2023-07-14 21:06] LABS: HPV APTIMA, High Risk Negative (Negative)
== END | disposition home or self-care (01) ==
PROVIDERS: Visit Provider Nurse Practitioner Women's Health
DX: Z12.4 Encounter for screening for malignant neoplasm of cervix (principal)
CPT/HCPCS: 87624; 88175; G0145